=== PATIENT | female | born 1995 | race Caucasian/White ===

== ENCOUNTER 2017-09-04 23:26 | Emergency (ER) | payer BC ==
[2017-09-05] MEDS ORDERED: Albuterol/Ipratropium NEB.SOL* Albuterol 2.5 MG/Ipratropium 0.5 MG 3 ML INH ONE (00:07)
[2017-09-05 00:50] LABS: Hematocrit 37 % (35-47); Hemoglobin 12.6 g/dl (12.0-16.0); Mean Corpuscular HGB Conc 34 g/dl (31-36); Mean Corpuscular Hemoglobin 30 pg (27-31); Mean Corpuscular Volume 89 fL (80-97); Mean Platelet Volume 9 um3 (7.4-10.4); Platelet Count 276 10^3/ul (150-450); Red Blood Count 4.21 10^6/ul (4.0-5.4); Red Cell Distribution Width 13 % (10.5-15); White Blood Count 9.4 10^3/ul (3.5-10.8)
[2017-09-05 01:04] LABS: INR 0.82 (0.77-1.02)
[2017-09-05 01:33] LABS: Monocytes % 7 % (0-7)
[2017-09-05] MEDS ORDERED: predniSONE TAB* 20 MG PO ONE (01:38)
[2017-09-05 02:01] VITALS: BP 122/70
--- NOTE | 2017-09-05 02:10 | ED ---
Vinod Silva Sixian, scribed for Saad Paiz on 09/05/17 at 0013 . Shortness of Breath - HPI Summary HPI Summary: This patient is a 22 year old F presenting to ED with a chief complaint of intermittent SOB since a few months ago. Pt reports not being able to breathe when attempting to go to bed earlier today. The patient rates the pain 0/10 in severity. Symptoms aggravated by lying down. Symptoms alleviated by nothing. - History of Current Complaint Chief Complaint: EDShortnessOfBreath Time Seen by Provider: 09/05/17 00:00 Hx Obtained From: Patient Onset/Duration: Gradual Onset, Lasting Weeks, Still Present Aggrevating Factors: Other - lying down Alleviating Factors: Nothing - Allergy/Home Medications Allergies/Adverse Reactions: Allergies Allergy/AdvReac Type Severity Reaction Status Date / Time cefaclor Allergy Swelling Verified 09/04/17 23:28 PMH/Surg Hx/FS Hx/Imm Hx Endocrine/Hematology History: Denies: Hx Diabetes Cardiovascular History: Denies: Hx Hypertension Respiratory History: Reports: Hx Asthma - Does not use an inhaler. 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 Infectious Disease History: No Infectious Disease History: Denies: Traveled Outside the [place] in Last 30 Days - Family History Known Family History: Positive: Other - Asthma Negative: Hypertension, Diabetes - Social History Occupation: Employed Full-time - farmworker poultry Hx Tobacco Use: Yes Smoking Status (MU): Current Some Day Smoker Review of Systems Negative: Fever Positive: Shortness Of Breath All Other Systems Reviewed And Are Negative: Yes Physical Exam - Summary Physical Exam Summary: Appearance: Well appearing, no pain distress Skin: warm, dry, reflects adequate perfusion Head/face: normal Eyes: EOMI, BIB ENT: normal Neck: supple, non-tender Respiratory: CTA, breath sounds present Cardiovascular: RRR, pulses symmetrical Abdomen: non-tender, soft Bowel: present Musculoskeletal: normal, strength/ROM intact Neuro: normal, sensory motor intact, A&Ox3 Triage Information Reviewed: Yes Vital Signs On Initial Exam: Initial Vitals Temp Pulse Resp BP Pulse Ox 99.1 F 98 16 143/76 100 09/04/17 23:29 09/04/17 23:29 09/04/17 23:29 09/04/17 23:29 09/04/17 23:29 Vital Signs Reviewed: Yes Diagnostics - Vital Signs Vital Signs Temp Pulse Resp BP Pulse Ox 09/04/17 23:29 99.1 F 98 16 143/76 100 - Laboratory Lab Results: Lab Results 09/05/17 09/05/17 09/05/17 Range/Units 00:37 00:37 00:37 WBC 9.4 (3.5-10.8) 10^3/ul RBC 4.21 (4.0-5.4) 10^6/ul Hgb 12.6 (12.0-16.0) g/dl Hct 37 (35-47) % MCV 89 (80-97) fL MCH 30 (27-31) pg MCHC 34 (31-36) g/dl RDW 13 (10.5-15) % Plt Count 276 (150-450) 10^3/ul MPV 9 (7.4-10.4) um3 Neut % (Auto) Not Reportable Lymph % (Auto) Not Reportable [place] % (Auto) Not Reportable Eos % (Auto) Not Reportable Baso % (Auto) Not Reportable Absolute Neuts (auto) Not Reportable Absolute Lymphs (auto) Not Reportable Absolute Monos (auto) Not Reportable Absolute Eos (auto) Not Reportable Absolute Basos (auto) Not Reportable Absolute Nucleated RBC Not Reportable Immature Gran % 2 (0-9) % Neutrophils % 25 L (38-83) % Lymphocytes % 42 (25-47) % Reactive Lymphs % 21 H (0-6) % Monocytes % 7 (0-7) % Eosinophils % 3 (0-6) % Basophils % 0 (0-2) % Metamyelocytes % 2 (0-2) % Nucleated RBC % Not Reportable Abs Neuts (Manual) 2.4 (1.5-7.7) 10^3/ul Abs Monocytes (Manual) 0.7 (0-0.8) 10^3/ul Absolute Eos (Manual) 0.3 (0-0.6) 10^3/ul Abs Basophils (Manual) 0 (0-0.2) 10^3/ul Normal RBC Morphology Normal (Normal) Hem Pathologist Commnt Pending INR (Anticoag Therapy) 0.82 (0.77-1.02) APTT 28.3 (26.0-36.3) seconds D-Dimer, Quantitative < 200 (Less Than 230) ng/mL Sodium (133-145) mmol/L Potassium (3.5-5.0) mmol/L Chloride (101-111) mmol/L Carbon Dioxide (22-32) mmol/L Anion Gap (2-11) mmol/L BUN (6-24) mg/dL Creatinine (0.51-0.95) mg/dL Est GFR ( Amer) (>60) Est GFR (Non-Af Amer) (>60) BUN/Creatinine Ratio (8-20) Glucose (70-100) mg/dL Calcium (8.6-10.3) mg/dL Total Bilirubin (0.2-1.0) mg/dL AST (13-39) U/L ALT (7-52) U/L Alkaline Phosphatase (34-104) U/L Troponin I (<0.04) ng/mL B-Natriuretic Peptide 13 ( - 100) pg/mL Total Protein (6.4-8.9) g/dL Albumin (3.2-5.2) g/dL Globulin (2-4) g/dL Albumin/Globulin Ratio (1-3) TSH (0.34-5.60) mcIU/mL Beta HCG, Quant mIU/mL Monoscreen Negative (Negative) 09/05/17 Range/Units 00:37 WBC (3.5-10.8) 10^3/ul RBC (4.0-5.4) 10^6/ul Hgb (12.0-16.0) g/dl Hct (35-47) % MCV (80-97) fL MCH (27-31) pg MCHC (31-36) g/dl RDW (10.5-15) % Plt Count (150-450) 10^3/ul MPV (7.4-10.4) um3 Neut % (Auto) Lymph % (Auto) [place] % (Auto) Eos % (Auto) Baso % (Auto) Absolute Neuts (auto) Absolute Lymphs (auto) Absolute Monos (auto) Absolute Eos (auto) Absolute Basos (auto) Absolute Nucleated RBC Immature Gran % (0-9) % Neutrophils % (38-83) % Lymphocytes % (25-47) % Reactive Lymphs % (0-6) % Monocytes % (0-7) % Eosinophils % (0-6) % Basophils % (0-2) % Metamyelocytes % (0-2) % Nucleated RBC % Abs Neuts (Manual) (1.5-7.7) 10^3/ul Abs Monocytes (Manual) (0-0.8) 10^3/ul Absolute Eos (Manual) (0-0.6) 10^3/ul Abs Basophils (Manual) (0-0.2) 10^3/ul Normal RBC Morphology (Normal) Hem Pathologist Commnt INR (Anticoag Therapy) (0.77-1.02) APTT (26.0-36.3) seconds D-Dimer, Quantitative (Less Than 230) ng/mL Sodium 136 (133-145) mmol/L Potassium 3.8 (3.5-5.0) mmol/L Chloride 108 (101-111) mmol/L Carbon Dioxide 21 L (22-32) mmol/L Anion Gap 7 (2-11) mmol/L BUN 14 (6-24) mg/dL Creatinine 0.87 (0.51-0.95) mg/dL Est GFR ( Amer) 102.9 (>60) Est GFR (Non-Af Amer) 80.0 (>60) BUN/Creatinine Ratio 16.1 (8-20) Glucose 94 (70-100) mg/dL Calcium 9.0 (8.6-10.3) mg/dL Total Bilirubin 0.40 (0.2-1.0) mg/dL AST 13 (13-39) U/L ALT 10 (7-52) U/L Alkaline Phosphatase 24 L (34-104) U/L Troponin I 0.00 (<0.04) ng/mL B-Natriuretic Peptide ( - 100) pg/mL Total Protein 6.2 L (6.4-8.9) g/dL Albumin 3.7 (3.2-5.2) g/dL Globulin 2.5 (2-4) g/dL Albumin/Globulin Ratio 1.5 (1-3) TSH 5.85 H (0.34-5.60) mcIU/mL Beta HCG, Quant < 0.60 mIU/mL Monoscreen (Negative) Result Diagrams: 09/05/17 00:37 09/05/17 00:37 Lab Statement: Any lab studies that have been ordered have been reviewed, and results considered in the medical decision making process. - Radiology CXR Radiology Interpretation Completed By: ED Physician - Negative. - EKG 0037 Cardiac Rate: NL EKG Rhythm: Sinus Rhythm - at 78 BPM EKG Interpretation: No acute changes. Re-Evaluation - Re-Evaluation First Eval Re-Evaluation Time: 01:38 Comment: Pt feels better. Course/Dx - Course Assessment/Plan: This patient is a 22 year old F presenting to ED with a chief complaint of intermittent SOB since a few months ago. Radiology included an EKG and a CXR (negative). In the ED course the patient was given Duoneb. Bloodwork was obtained. The patient is diagnosed with bronchospasms and anxiety. The patient is instructed to follow up with primary care. - Diagnoses Differential Diagnosis/HQI/PQRI: Positive: Asthma, Bronchitis, Pneumonia Provider Diagnoses: Anxiety, Bronchospasm Discharge - Discharge Plan Condition: Stable Disposition: HOME Prescriptions: Albuterol HFA INHALER* [Ventolin HFA Inhaler*] 2 puff INH Q6H PRN #1 mdi MDD 3 PRN Reason: Sob/Wheezing predniSONE TAB* [Deltasone TAB*] 40 mg PO DAILY #4 tab Patient Education Materials: Bronchospasm (ED), Anxiety (ED) Referrals: Fallon Sainz MD [Primary Care Provider] - 3 Days Additional Instructions: RETURN TO THE EMERGENCY DEPARTMENT FOR CHANGING OR WORSENING SYMPTOMS. The documentation as recorded by the Vinod juarez Sixian accurately reflects the service I personally performed and the decisions made by , Saad Paiz.
--- NOTE | 2017-09-05 10:11 | RAD ---
Indication: Shortness of breath. 2 views of the chest including dual energy PA views demonstrates no mediastinal shift. Heart is of normal size and configuration. Lung kelley appear clear. IMPRESSION: No active cardiopulmonary disease is noted.
== END 2017-09-05 02:01 | disposition home or self-care (01) ==
LOC: ED 23:26
DX: F41.9 Anxiety disorder, unspecified (principal); J98.01 Acute bronchospasm; F17.200 Nicotine dependence, unspecified, uncomplicated; Z88.3 Allergy status to other anti-infective agents
CPT/HCPCS: 36415; 71046; 80053; 83880; 84443; 84484; 84702; 85025; 85060; 85379; 85610; 85730; 86308; 93005; 94640; 99283; A9270-GY; J7512